=== PATIENT | male | born 1990 | race Caucasian/White ===

== ENCOUNTER 2018-09-19 16:21 | Outpatient (CLI) | payer MEDICAID ==
[2018-09-20 12:17] LABS: HEPATITIS C ANTIBODY NON-REACTIVE (NON-REACTIVE)
--- NOTE | 2018-09-20 12:59 | XRAY Report ---
Reason: PAIN IN LEFT FOOT Procedure Date: 09/19/2018 Accession Number: [id number] / [id number] Procedure: XR - Foot 3 View LT CPT Code: FULL RESULT: EXAM: LEFT FOOT RADIOGRAPHY EXAM DATE: 09/19/2018 04:41 PM. CLINICAL HISTORY: PAIN IN LEFT FOOT. COMPARISON: None. TECHNIQUE: 3 views. FINDINGS: Bones: Bony mineralization appears appropriate. No acute fracture or focal osseous destruction. Joints: Alignment and joint spaces appear maintained. Soft Tissues: No radiopaque foreign body. Mild soft tissue swelling. IMPRESSION: No acute fracture or dislocation identified. RADIA
[2018-09-20 13:06] LABS: HIV AG/AB 4TH GEN NON-REACTIVE (NON-REACTIVE)
[2018-09-21 12:41] LABS: HSV 1 IGG TYPE SPECIFIC AB <0.90 index; HSV 2 IGG TYPE SPECIFIC AB <0.90 index
== END 2018-09-19 16:22 | disposition home or self-care (01) ==
LOC: DI 16:21
PROVIDERS: ATTEND Nurse Practitioner Family
DX: M79.672 Pain in left foot (principal); Z72.51 High risk heterosexual behavior
CPT/HCPCS: 36415; 81599; 86695; 86696; 86803; 87389; 87491; 87591

== ENCOUNTER 2019-06-07 16:09 | Outpatient (CLI) | payer MEDICAID | END 2019-06-07 23:59 | disposition home or self-care (01) | LOC: LAB.R 16:09 | PROVIDERS: ATTEND Registered Nurse | DX: J02.9 Acute pharyngitis, unspecified (principal) | CPT/HCPCS: 87070; 87077 ==

== ENCOUNTER 2020-04-05 08:37 | Emergency (ER) | payer MEDICAID ==
--- NOTE | 2020-04-05 09:25 | ED Physician Documentation ---
PD HPI CHEST PAIN - Stated complaint Stated Complaint: LT ARM PX/CHEST PX - Chief complaint Chief Complaint: Cardiac - History obtained from History obtained from: Patient - Additional information Additional information: Patient comes emergency department complaining of some dyspnea that started a few days ago and was fairly short-lived. Patient states that around the same time, he began to notice some numbness in his left arm. He states that he has migratory discomfort on and off in his chest, which can be a "full" feeling or intermittent stabbing pains. The patient states that 2 nights ago, he was thinking about , and he began to have a panic attack. Patient states he had many of the same symptoms at that time, but they did ultimately resolve. The patient states the feeling of left arm "numbness" has been somewhat persistent for the last few days, though it does fluctuate a little. Patient states that right now he is not having any pain in his chest, but that it does come and go. There does not seem to be any change with exertion, the patient states. He does note that when his girlfriend raises the intensity of her voice, he does not have the tolerance for this that he usually does, and it makes him feel anxious and tight chested again. Patient states that he has a friend who in December, possibly due to suicide versus illness and heart issues, and that her memorial service was 1 week ago. Patient states this is what got him thinking about and that he may just be having anxiety. Patient has noticed a little bit of right upper quadrant discomfort. No calf pain or lower extremity swelling. No personal or family history of coronary artery disease at a young age or venous thromboembolism. Patient uncle had his gallbladder removed, but no other family history that patient knows of. He states he is not in contact with his biological father so he does not know that side. Patient was a smoker until about a year ago and now uses a nicotine pouch in his mouth. He does not have any history of diabetes, hypertension, or hyperlipidemia that he knows of. No recent immobility. Patient does also note that his urine has had a strange smell or only. No dysuria or lower abdominal pain. No nausea or vomiting. No other complaints at this time. Review of Systems Ten Systems: 10 systems reviewed and negative Constitutional: reports: Reviewed and negative Eyes: reports: Reviewed and negative Ears: reports: Reviewed and negative Nose: reports: Reviewed and negative Throat: reports: Reviewed and negative Cardiac: reports: Chest pain / pressure Respiratory: reports: Dyspnea GI: reports: Reviewed and negative : reports: Reviewed and negative Skin: reports: Reviewed and negative Musculoskeletal: reports: Reviewed and negative Neurologic: reports: Reviewed and negative Psychiatric: reports: Reviewed and negative Endocrine: reports: Reviewed and negative Immunocompromised: reports: Reviewed and negative PD PAST MEDICAL HISTORY - Present Medications Home Medications: Ambulatory Orders Medication Instructions Recorded Confirmed No Known Home Medications 04/05/20 04/05/20 - Allergies Allergies/Adverse Reactions: Allergies Allergy/AdvReac Type Severity Reaction Status Date / Time No Known Drug Allergies Allergy Verified 04/05/20 08:50 PD ED PE NORMAL - Vitals Vital signs reviewed: Yes - General General: Alert and oriented X 3, No acute distress, Well developed/nourished - HEENT HEENT: Atraumatic, PERRL, EOMI, Moist mucous membranes - Neck Neck: Supple, no meningeal sign - Cardiac Cardiac: RRR, No murmur, Strong equal pulses - Respiratory Respiratory: No respiratory distress, Clear bilaterally - Abdomen Abdomen: Soft, Non tender, Non distended - Back Back: No CVA TTP - Derm Derm: Warm and dry - Extremities Extremities: No deformity - Neuro Neuro: Alert and oriented X 3 - Psych Psych: Normal mood, Normal affect Results - Vitals Vitals: Vital Signs - 24 hr 04/05/20 04/05/20 04/05/20 08:45 09:30 10:15 Temperature 36.8 C 36.7 C Heart Rate 80 71 75 Respiratory 18 18 18 Rate Blood Pressure 131/87 H 127/76 110/68 O2 Saturation 100 97 95 Oxygen O2 Source Room air - EKG (time done) 0848 Rate: Rate (enter#) (76) Rhythm: NSR [place]: Normal Intervals: Normal OR QRS: Normal Ischemia: ST elevation c/w repol Compare to prior EKG: Old EKG unavailable Computer interpretation: Agree with computer - Labs Labs: Laboratory Tests 04/05/20 04/05/20 04/05/20 09:30 09:30 09:30 WBC 4.6 L RBC 4.71 Hgb 14.8 Hct 43.3 MCV 91.9 MCH 31.4 H MCHC 34.2 RDW 12.0 Plt Count 191 MPV 9.7 Neut # (Auto) 2.7 Lymph # (Auto) 1.3 L Yell # (Auto) 0.4 Eos # (Auto) 0.1 Baso # (Auto) 0.0 Absolute Nucleated RBC 0.00 Nucleated RBC % 0.0 D-Dimer Sodium 138 Potassium 4.1 Chloride 101 Carbon Dioxide 25 Anion Gap 12.0 BUN 13 Creatinine 0.9 Estimated GFR (MDRD) 100 Glucose 106 H Calcium 9.6 Total Bilirubin 0.8 AST 25 ALT 24 Alkaline Phosphatase 66 Troponin I High Sens 3.4 Total Protein 7.4 Albumin 4.7 Globulin 2.7 Albumin/Globulin Ratio 1.7 Lipase 42 Urine Color Urine Clarity Urine pH Ur Specific [place] Urine Protein Urine Glucose (UA) Urine Ketones Urine Occult Blood Urine Nitrite Urine Bilirubin Urine Urobilinogen Ur Leukocyte Esterase Ur Microscopic Review Urine Culture Comments 04/05/20 04/05/20 09:30 09:30 WBC RBC Hgb Hct MCV MCH MCHC RDW Plt Count MPV Neut # (Auto) Lymph # (Auto) Yell # (Auto) Eos # (Auto) Baso # (Auto) Absolute Nucleated RBC Nucleated RBC % D-Dimer < 200.0 L Sodium Potassium Chloride Carbon Dioxide Anion Gap BUN Creatinine Estimated GFR (MDRD) Glucose Calcium Total Bilirubin AST ALT Alkaline Phosphatase Troponin I High Sens Total Protein Albumin Globulin Albumin/Globulin Ratio Lipase Urine Color LT. YELLOW Urine Clarity CLEAR Urine pH 7.5 Ur Specific [place] 1.010 Urine Protein NEGATIVE Urine Glucose (UA) NEGATIVE Urine Ketones NEGATIVE Urine Occult Blood NEGATIVE Urine Nitrite NEGATIVE Urine Bilirubin NEGATIVE Urine Urobilinogen 0.2 (NORMAL) Ur Leukocyte Esterase NEGATIVE Ur Microscopic Review NOT INDICATED Urine Culture Comments NOT INDICATED - Rads (name of study) CXR Radiology: Final report received, EMP read indepedently, See rad report (Negative) PD MEDICAL DECISION MAKING - ED course Complexity details: reviewed results, re-evaluated patient, considered differential, d/w patient, d/w family ED course: The patient overall was very low risk but I did feel that, given his symptoms, he should have some work-up done in the emergency department. To this end, labs, EKG, and chest x-ray were obtained. Work-up was negative. I discussed with the patient that he is very low risk for coronary artery disease, and that we have not found any other emergent cause of his symptoms. We discussed follow-up, as well as the usual indications for return. Patient is feeling well on discharge. Departure - Departure Disposition: 01 Home, Self Care Clinical Impression: Anxiety Chest pain Qualifiers: Chest pain type: unspecified Qualified Code(s): R07.9 - Chest pain, unspecified Condition: Stable Instructions: ED Chest Pain Atypical Unkn Cause Comments: Your labs, EKG, and chest x-ray all look good. There is no evidence of an emergent cause of your symptoms. As we have discussed, at this time, you are very low risk, overall, for coronary artery disease, the clogging of the arteries of the heart which leads to heart attack. There is no evidence of an aneurysm, blood clot, or other emergent cause of your symptoms, either. Some of the symptoms may be attributable to anxiety. The other possibility is that you could have a source in your stomach, whether some inflammation or an ulcer, and this could also cause the symptoms you are having. It is very important that you follow-up with your primary care physician if you continue to have symptoms for more than the next week. You may otherwise continue about your normal activities. If your symptoms become severe, please return to the emergency department. Discharge Date/Time: 04/05/20 10:21
[2020-04-05 09:34] LABS: BASOPHILS % (AUTO) 0.4 %; EOSINOPHILS # (AUTO) 0.1 10^3/uL (0.0-0.7); EOSINOPHILS % (AUTO) 2.6 %; HGB - HEMOGLOBIN 14.8 g/dL (14.0-18.0); LYMPHOCYTES # (AUTO) 1.3 10^3/uL (1.5-3.5); MEAN CORPUSCULAR HEMOGLOBIN 31.4 pg (27.0-31.0); MEAN CORPUSCULAR HGB CONC 34.2 g/dL (32.0-36.0); MEAN CORPUSCULAR VOLUME 91.9 fL (80.0-94.0); MEAN PLATELET VOLUME 9.7 fL (7.4-11.4); MONOCYTES # (AUTO) 0.4 10^3/uL (0.0-1.0); MONOCYTES % (AUTO) 8.7 %; NEUTROPHILS # (AUTO) 2.7 10^3/uL (1.5-6.6); NEUTROPHILS % (AUTO) 59.1 %; PLT - PLATELET COUNT 191 10^3/uL (130-450); RED BLOOD COUNT 4.71 10^6/uL (4.70-6.10); WHITE BLOOD COUNT 4.6 x10^3/uL (4.8-10.8)
[2020-04-05 09:43] LABS: BILIRUBIN,URINE NEGATIVE (NEGATIVE); GLUCOSE, URINE (UA) NEGATIVE (NEGATIVE); KETONES,URINE (UA) NEGATIVE (NEGATIVE); LEUKOCYTE ESTERASE, URINE NEGATIVE (NEGATIVE); NITRITE,URINE NEGATIVE (NEGATIVE); OCCULT BLOOD,URINE NEGATIVE (NEGATIVE); PH,URINE 7.5 PH (5.0-7.5); PROTEIN,URINE NEGATIVE (NEGATIVE); UROBILINOGEN,URINE 0.2 (NORMAL) E.U./dL (NORMAL)
[2020-04-05 09:47] LABS: ALBUMIN 4.7 g/dL (3.2-5.5); ALBUMIN/GLOBULIN RATIO 1.7 (1.0-2.2); BILIRUBIN,TOTAL 0.8 mg/dL (0.2-1.0); CALCIUM 9.6 mg/dL (8.5-10.3); CLARITY,URINE CLEAR (CLEAR); CREATININE 0.9 mg/dL (0.6-1.2); TOTAL PROTEIN 7.4 g/dL (6.7-8.2)
--- NOTE | 2020-04-05 09:55 | XRAY Report ---
PROCEDURE: Chest 2 View X-Ray INDICATIONS: chest pain/dyspnea TECHNIQUE: 2 view(s) of the chest. COMPARISON: None. FINDINGS: Surgical changes and devices: None. Lungs and pleura: No pleural effusions or pneumothorax. Lungs are clear. Mediastinum: Mediastinal contours are normal. Heart size is normal. Bones and chest wall: No suspicious bony abnormalities. Soft tissues appear unremarkable. IMPRESSION: Normal chest radiographs. Reviewed by: Rickie Saldivar MD on 04/05/2020 8:54 AM LIZETH Approved by: Rickie Saldivar MD on 04/05/2020 8:54 AM LIZETH Station ID: [id number]
[2020-04-05 10:15] VITALS: BP 110/68
== END 2020-04-05 10:21 | disposition home or self-care (01) ==
LOC: ED 08:37
DX: R07.9 Chest pain, unspecified (principal); F41.9 Anxiety disorder, unspecified; F17.200 Nicotine dependence, unspecified, uncomplicated
CPT/HCPCS: 36415; 71046; 80053; 81001; 81003; 83690; 84484; 85025; 85379; 87086; 93005; 99284

== ENCOUNTER 2023-08-10 12:08 | Outpatient (CLI) | payer MEDICAID ==
[2023-08-10 14:41] LABS: BASOPHILS % (AUTO) 0.2 %; EOSINOPHILS # (AUTO) 0.1 10^3/uL (0.0-0.7); EOSINOPHILS % (AUTO) 1.7 %; HCT - HEMATOCRIT 45.4 % (42.0-52.0); HGB - HEMOGLOBIN 15.1 g/dL (14.0-18.0); LYMPHOCYTES # (AUTO) 1.3 10^3/uL (1.5-3.5); LYMPHOCYTES % (AUTO) 22.5 %; MEAN CORPUSCULAR HEMOGLOBIN 30.6 pg (27.0-31.0); MEAN CORPUSCULAR HGB CONC 33.3 g/dL (32.0-36.0); MEAN CORPUSCULAR VOLUME 92.1 fL (80.0-94.0); MEAN PLATELET VOLUME 9.9 fL (7.4-11.4); MONOCYTES # (AUTO) 0.5 10^3/uL (0.0-1.0); MONOCYTES % (AUTO) 8.4 %; NEUTROPHILS # (AUTO) 3.9 10^3/uL (1.5-6.6); NEUTROPHILS % (AUTO) 66.9 %; PLT - PLATELET COUNT 235 10^3/uL (130-450); RED BLOOD COUNT 4.93 10^6/uL (4.70-6.10); RED CELL DISTRIBUTION WIDTH 12.7 % (12.0-15.0); WHITE BLOOD COUNT 5.8 x10^3/uL (4.8-10.8)
[2023-08-10 16:08] LABS: ALBUMIN 4.8 g/dL (3.2-5.5)
[2023-08-10 16:09] LABS: ALBUMIN/GLOBULIN RATIO 1.8 (1.0-2.2); BILIRUBIN,TOTAL 0.5 mg/dL (0.2-1.0); CALCIUM 9.6 mg/dL (8.5-10.3); CREATININE 1.1 mg/dL (0.6-1.3); POTASSIUM 4.4 mmol/L (3.5-4.5); TOTAL PROTEIN 7.4 g/dL (6.4-8.9)
[2023-08-10 16:28] LABS: THYROID STIMULATING HORMONE 1.5 uIU/mL (0.34-5.60)
== END 2023-08-10 12:09 | disposition home or self-care (01) ==
LOC: LAB.S 12:08
PROVIDERS: ATTEND Registered Nurse
DX: G24.5 Blepharospasm (principal)
CPT/HCPCS: 36415; 80053; 82330; 83735; 84443; 85025